=== PATIENT | female | born 1980 | race Caucasian/White ===

== ENCOUNTER 2019-09-13 12:44 | Outpatient (CLI) | payer OTHER, SELFPAY ==
--- NOTE | ~2019-09-13 | MR_ITS ---
EXAMINATION: MR lumbar spine wo con EXAM DATE: 09/13/2019 13:36 INDICATION: Chronic low back pain, bilateral leg pain and numbness. TECHNIQUE: Multi-sequential, multiplanar MR images of the lumbar spine were obtained without contrast . Sagittal T1, T2, T2 fat saturation images. Axial T2 weighted images. There is no prior study for comparison. FINDINGS: There is moderate to severe loss of the L4-5 disc height, with only mild endplate degenerat jordon signal change or bony productive change. Mild to moderate disc disease at L5-S1 and mild at L3-4 with small annular fissure. The conus medullaris terminates at the T12-L1 level and has normal signal intensity and morphology. The vertebral bodies are aligned in the AP dimension. There are no suspi cious marrow signal abnormalities. Paraspinal soft tissue is unremarkable. Level by level evaluation: T12-L1: Disc does not extend beyond the endplate margin. Facet arthropathy: None. Neural foraminal stenosis: No stenosis. Central canal stenosis: No stenosis. L1-L2: Disc does not extend beyond the endplate margin. Facet arthropathy: Mild. Neural foraminal stenosis: No stenosis. Central canal stenosis: No stenosis. L2-L3: Disc does not extend beyond the endplate margin. Facet arthropathy: Mild. Neural foraminal stenosis: No stenosis. Central canal stenosis: No stenosis. L3-L4: There is a mild diffuse disc bulge. Facet arthropathy: Mild. Neural foraminal stenosis: No stenosis. Central canal stenosis: Mild. L4-L5: There is a mild to moderate diffuse disc bulge. Facet arthropathy: Mild to moderate. Neural foraminal stenosis: Mild bilateral. Central canal stenosis: Mild to moderate. L5-S1: There is a mild to moderate diffuse disc bulge. Facet arthropathy: Mild. Neural foraminal stenosis: Mild right. Central canal stenosis: Mild. IMPRESSION: 1. Moderate to severe loss of the L4-5 disc height. 2. Otherwise mild to moderate lumbar spondylosis as above. Reviewed, dictated and finalized at location A.
--- NOTE | ~2019-09-13 | XR_ITS ---
XR lumbar spine min 4V DATE: 09/13/2019 13:42 INDICATION: Low back pain. No injury. TECHNIQUE: AP, lateral, coned lateral lumbosacral views. Flexion and extension lateral views. COMPARISON: None FINDINGS: There is normal alignment of the lumbar spine except for slight retrolisthesis at L2-3 and L3-4. There is severe degenerative disc disease at L4-5 and moderate loss of interspace height at L5-S1. No fracture or dislocation or bone destruction is evident. T12-L5 included pedicles are intact. The sacroiliac joints appear normal. IMPRESSION: Severe degenerative disc disease at L4-5 Moderate loss of interspace height at L5-S1 Reviewed, dictated and finalized at location A.
== END 2019-09-13 12:45 | disposition home or self-care (01) ==
LOC: ANHIMG 12:45
PROVIDERS: PCP Physician Assistant
DX: M47.816 Spondylosis without myelopathy or radiculopathy, lumbar region (principal)
CPT/HCPCS: 72110; 72148